=== PATIENT | male | born 1965 ===

== ENCOUNTER 2017-07-22 19:45 | Emergency (ER) | payer BC ==
[2017-07-22 19:53] VITALS: RESP 20
--- NOTE | 2017-07-22 20:18 | C.PDOC ---
History Of Present Illness 51 year old male presents to the ER with a complaint of fever for the past 4 days, associated with a generalized rash today. Also notes pain and swelling to the groin for 2 days. Patient has not taken anything for his symptoms. Patient notes that he had a mild rash localized to his feet for the past 1.5 months which he thought was related to his detergent. Pt notes he is from [facility] and had all his vaccinations as a child. He has lived in the [place] for the last 18 years and has received tetanus and influenza vaccines. No recent travel. Denies any URI symtpoms in the last week. Denies PMHx, chest pain, sob, dysuria , hematuria, testicular pain, penile discharge, penile lesions. Time Seen by Provider: 07/22/17 20:07 Chief Complaint (Nursing): Abnormal Skin Integrity History Per: Patient, Family, Python Engineer History/Exam Limitations: no limitations Onset/Duration Of Symptoms: Days Current Symptoms Are (Timing): Still Present Recent travel outside of the [place]: No Past Medical History Reviewed: Historical Data, Nursing Documentation, Vital Signs Vital Signs: Last Vital Signs Temp 100.7 F H 07/22/17 22:31 Pulse 107 H 07/22/17 22:31 Resp 20 07/22/17 22:31 BP 121/71 07/22/17 21:23 Pulse Ox 100 07/22/17 22:53 Family History: States: Unknown Family Hx - Social History Hx Alcohol Use: No Hx Substance Use: No - Immunization History Hx Tetanus Toxoid Vaccination: No Hx Influenza Vaccination: Yes Review Of Systems Except As Marked, All Systems Reviewed And Found Negative. Constitutional: Positive for: Fever Genitourinary: Positive for: Other (groin swelling) Skin: Positive for: Rash Physical Exam - Physical Exam Appears: Well, Non-toxic, No Acute Distress Skin: Warm, Dry, Rash (Erythematous blanching macular rash diffusely) Head: Atraumatic, Normacephalic Eye(s): bilateral: PERRL, EOMI, Other (Mild injection b/l ) Ear(s): Bilateral: Normal Nose: Normal Oral Mucosa: Moist, Other ((+) ? white spots to the right buccal mucosa) Throat: Normal, No Erythema, No Exudate, No Drooling Neck: Normal, Normal ROM, Supple Lymphatic: Inguinal Node Tenderness (Bilateral) Chest: Symmetrical, No Tenderness Cardiovascular: Rhythm Regular Respiratory: Normal Breath Sounds, No Rales, No Rhonchi, No Wheezing Gastrointestinal/Abdominal: Soft, No Tenderness Extremity: Normal ROM Neurological/Psych: Oriented x3, Normal Speech ED Course And Treatment - Laboratory Results Result Diagrams: 07/22/17 20:49 07/22/17 20:49 O2 Sat by Pulse Oximetry: 100 (Room air) Pulse Ox Interpretation: Normal Progress Note: Blood work, urinalysis, flu swab, and rapid strep ordered. Tylenol and benadryl administered. Lab results discuss with patient who was advised to treat fever symptomatically and follow up with PMD in 1-2 days; patient understand and agrees with plan. Discussed with pt possible DDx and instructed possible contagious and to avoid children and women. Case discussed with Dr. Breaux, who evalauted pt and agrees on treatment plan and discharge. Disposition - Disposition Disposition: HOME/ ROUTINE Disposition Time: 23:08 Condition: STABLE Additional Instructions: Follow up with your doctor in 1-2 days. Return to ER if symptoms persist or worsen right away. Avoid contact with people or children to avoid possibility of spreading. Follow up with your results in medical records. Linh un seguimiento con fisher mdico en 1-2 cheek. Regrese a la ed de emergencias si los sntomas persisten o empeoran de inmediato. Evite el contacto con personas embarazadas o nios para evitar la posibilidad de propagacin. Linh un seguimiento con tiffanie resultados en los registros mdicos. Prescriptions: DiphenhydrAMINE [Benadryl] 25 mg PO Q6 #20 cap Ibuprofen [Motrin] 600 mg PO Q6 PRN #20 tab PRN Reason: Pain, Mild (1-3) Instructions: Skin Rash (DC) Forms: [facility] (Slovak), Work Excuse Print Language: FILIPINO - Clinical Impression Clinical Impression: Fever, Rash, Lymphadenopathy - PA / SOFTWARE RELEASE ENGINEER / Resident Statement MD/DO has reviewed & agrees with the documentation as recorded. - Scribe Statement The provider has reviewed the documentation as recorded by the Scribe Yvon Azar All medical record entries made by the Scribe were at my direction and personally dictated by me. I have reviewed the chart and agree that the record accurately reflects my personal performance of the history, physical exam, medical decision making, and the department course for this patient. I have also personally directed, reviewed, and agree with the discharge instructions and disposition.
[2017-07-22] MEDS ORDERED: DiphenhydrAMINE 50 mg/ml Inj IVP STA (20:27)
[2017-07-22] MEDS ORDERED: DiphenhydrAMINE 50 mg/ml Inj ONE ×2 (20:52)
[2017-07-22 20:55] LABS: BASO % 0.6 % (0.0-2.0); EOS # 0.1 K/uL (0.0-0.7); EOS % 1.3 % (0.0-4.0); HEMOGLOBIN 14.5 g/dL (12.0-18.0); LYMPH # 1.1 K/uL (1.0-4.3); LYMPH % 14.4 % (20.0-40.0); MEAN CELL VOLUME 82.5 fL (80.0-94.0); MEAN CORPUSCULAR HGB CONC 35.2 g/dL (33.0-37.0); MEAN PLATELET VOLUME 8.4 fL (7.2-11.7); MONO # 0.6 K/uL (0.0-0.8); MONO % 7.8 % (0.0-10.0); NEUT # 5.6 K/uL (1.8-7.0); NEUT % 75.9 % (50.0-75.0); RED CELL DISTRIBUTION WIDTH 14.5 % (11.5-14.5); WHITE BLOOD COUNT 7.4 K/uL (4.8-10.8)
[2017-07-22 21:03] LABS: SQUAMOUS EPITHIAL < 1 /hpf (0-5); URINE BILIRUBIN NEGATIVE (NEGATIVE); URINE BLOOD NEGATIVE (NEGATIVE); URINE CLARITY Clear (Clear); URINE COLOR Yellow (YELLOW); URINE GLUCOSE (UA) NORMAL (Normal); URINE LEUKOCYTE ESTERASE NEG Leu/uL (Negative); URINE PROTEIN NEGATIVE (NEGATIVE)
[2017-07-22 21:07] LABS: ALB/GLOB RATIO 1.2 (1.0-2.1); ALBUMIN 4.5 g/dL (3.5-5.0); ALT/SGPT 25 U/L (21-72); AST/SGOT 36 U/L (17-59); BLOOD UREA NITROGEN 17 mg/dL (9-20); GFR AFRICAN-AMERICAN > 60; GFR NON-AFRICAN AMERICAN 58
[2017-07-22 21:11] LABS: BARBITURATES, UR NEGATIVE (NEGATIVE); BENZODIAZEPINES, UR NEGATIVE (NEGATIVE); OPIATES, UR NEGATIVE (NEGATIVE); PHENCYCLIDINE, UR NEGATIVE (NEGATIVE)
[2017-07-22 21:24] VITALS: BP 121/71
[2017-07-22] MEDS ORDERED: Sodium Chloride 0.9% 1,000 ML IV ONE (21:43)
[2017-07-22 22:32] VITALS: PULSE 107; TEMP 100.7
[2017-07-22 22:53] VITALS: O2SAT 100
[2017-07-23 16:15] LABS: RAPID PLASMA REAGIN NONREACTIVE (NONREACTIVE)
== END 2017-07-22 23:06 | disposition home or self-care (01) ==
LOC: C.ER 19:45
DX: R50.9 Fever, unspecified (principal); R21 Rash and other nonspecific skin eruption; R59.1 Generalized enlarged lymph nodes
CPT/HCPCS: 80053; 81001; 85025; 86592; 86765; 87070; 87430; 87491; 87591; 87804; 96361; 96374; 99284; G0480; J1200; J7040